=== PATIENT | female | born 1965 | race Two or more races ===

== ENCOUNTER 2024-11-26 17:48 | Inpatient (IN) | payer MEDICAID, OTHER ==
[~2024-11-26] VITALS: Ht 154.9 cm; Wt 82.0 kg
--- NOTE | 2024-11-26 18:04 | ED.PDOC ---
HPI Comments 59 y.o female presents to the ED via EMS for a chief complaint of chest pain associated with SOB and a cough that started 3 days ago. Patient reports pain is constant, substernal and non radiating, worsening on palpation and with deep inspiration. Patient reports recent discharge from [facility] on 11/12/24 with diagnose of PNA. Patient was admitted to the ICU for 2 weeks then and intubated. Patient reports upon discharge, she was not prescribed any antibiotics. Patient denies any leg swelling, nausea, vomiting, fever, or chills. Vitals: BP: 157/100 HR: 83 Temp: 98.1 F SPO2: 98% RA RR: 20 Past medical history: HTN, hyperlipidemia, kidney disease, PNA with intubation and seizures: is on Tegretol Past surgical history: Appendectomy and hysterectomy Allergies: Denies HPI: Poor Historian. REVIEW OF SYSTEMS: CONSTITUTIONAL: Denies acute: fever, diaphoresis, chills, generalized weakness. HEAD: Denies acute: headache, photophobia Eyes: Denies acute: Double vision, vision loss, eye pain, eye discharge. EARS: Denies acute: tinnitus, hearing loss, ear discharge, ear pain, THROAT: Denies acute: sore throat, swelling, difficulty swallowing , pain with swallowing, change in voice. NECK: Denies acute: neck pain, neck swelling, stiff neck. HEART: Denies acute : palpitations, LUNGS: Denies acute: wheezing, hemoptysis ABDOMEN: Denies acute: abdominal pain, Nausea, Vomiting, diarrhea, melena , hematemesis, hematochezia SKIN: Denies acute: rash, redness, lesions, itchiness. EXTREMITIES: Denies acute: calf pain, numbness, tingling, weakness, denies pain in extremity. Denies acute: Low back pain. Neuro: Denies acute: focal neurological deficit, motor or sensory focal neurological deficit, tremors, seizure like activity, confusion, dizziness, change in mental status, loss of bowel or bladder function, cauda equina like symptoms. : Denies acute: dysuria, hematuria, flank pain, increase in urinary frequency. PSYCH: Denies acute: hallucination, suicidal ideation, homicidal ideation. FEMALE: Denies acute: abnormal vaginal bleeding, foul odor, unusual discharge. PHYSICAL EXAM: General: ---[id number]-----acute distress, awake and alert. Head: normocephalic, atraumatic. Neck: supple, trachea is midline, no swelling. Throat: Normal phonation. Eyes:, no erythema, no purulent discharge, no proptosis, no icterus. Heart: regular rate, regular rhythm, no significant murmur appreciated. Lungs: no apparent respiratory distress, Able to speak in full sentences. No wheezing, no rhonchi, no crackles. No stridors Clear to auscultation bilaterally. Abdomen: non tender to palpation, non distended, soft, no guarding, no rebound, + bowel sounds. Neuro: Awake, Alert, oriented to name, self, situation, follows commands GCS=15. Speech is normal. Skin: no petechia, no purpura, no cyanosis, non-pale, not jaundice. Lower extremities: --no - Pitting edema no deformity, no focal swelling, no calf TTP. Makes eye contact. moves all four extremities. Face: no apparent facial droop. Ambulating in the ED independently. ED COURSE: Chief Complaint: Chest Pain Time Seen by MD: 17:54 Primary Care Provider: NONE Reviewed Notes: Nurses Notes, Allergies Allergies: Coded Allergies: NO KNOWN ALLERGIES (Unverified , 11/26/24) Information Source: Patient Mode of Arrival: EMS Past Medical History PAST MEDICAL HISTORY: CKF, HTN, Seizures Past Medical History (Other): PNA with intubation Surgical History: Appendectomy, Hysterectomy FIELD CROP TECHNICAL OFFICER History: No Pertinent FIELD CROP TECHNICAL OFFICER History Family History Family History: Reviewed,noncontributory to illness Social History Smoker: Non-Smoker Alcohol: Denies ETOH Use Drugs: Denies Drug Use Lives In: Home Was a procedure done? Was a procedure done?: No CP Differential Dx Differential Diagnosis: N/A Differential Diagnosis: Angina, Chest Wall Pain, Costochondritis, Pericarditis, Other (Ddx include but not limitied to gastritis, musculoskeletal pain, radiculopathy, atypical chest pain, dissection, aneurysm, ACS, unstable angina, hiatal hernia, GERD, anxiety, costochondritis, PE, pneumothroax, neoplasm, cardiac ischemia, drug abuse, anemia.) X-Ray, Labs, Meds, VS Vital Signs Date Time Temp Pulse Resp B/P (MAP) Pulse Ox O2 Delivery O2 Flow Rate FiO2 11/26/24 21:14 66 11/26/24 20:27 98.1 79 16 152/95 (114) 95 98.1 11/26/24 18:49 81 11/26/24 18:17 151/100 11/26/24 17:50 81 11/26/24 17:48 98.1 83 20 157/100 (119) 98 98.1 Lab Test 11/26/24 21:31 11/26/24 20:40 11/26/24 19:34 11/26/24 18:14 Range/Units Troponin I High Sensitivity 5 5 5 </=34 ng/L Blood Gas Specimen Type Arterial Blood Gas Sample Site Right radial Blood Gas Patient Temperature 37.0 Arterial Blood Date Drawn [id number] Arterial Blood pH 7.500 H 7.350-7.450 Arterial Blood Partial Pressure CO2 27.1 L 32.0-45.0 mmHg Arterial Blood Partial Pressure O2 90.4 83.0-108.0 mmHg Arterial Blood HCO3 20.7 L 21.0-28.0 mmol/L Arterial Blood Oxygen Saturation 97.1 94.0-98.0 % Arterial Blood Base Excess -1.3 -2.0-3.0 mmol/L Arterial Blood Oxyhemoglobin 95.2 94.0-98.0 % Arterial Blood Carboxyhemoglobin 1.5 0.5-1.5 % Arterial Blood Methemoglobin 0.5 0.0-1.5 % Joel Test Modified Blood Gas Total Hemoglobin 12.70 12.0-16.0 g/dL Blood Gas Modality Room air FiO2 % 21.0 White Blood Count 7.5 4.4-10.8 10^3/uL Red Blood Count 4.26 4.0-5.20 10^6/uL Hemoglobin 13.2 12.2-16.2 g/dL Hematocrit 38.6 36.0-46.0 % Mean Corpuscular Volume 90.6 80.0-100.0 fL Mean Corpuscular Hemoglobin 30.9 28.0-32.0 pg Mean Corpuscular Hemoglobin Concent 34.1 32.0-36.0 g/dL Red Cell Distribution Width 14.7 H 11.8-14.3 % Platelet Count 253 140-450 10^3/uL Mean Platelet Volume 9.4 6.9-10.8 fL Neutrophils (%) (Auto) 51.1 37.0-80.0 % Lymphocytes (%) (Auto) 42.2 10.0-50.0 % Monocytes (%) (Auto) 4.9 0.0-12.0 % Eosinophils (%) (Auto) 1.1 0.0-7.0 % Basophils (%) (Auto) 0.7 0.0-2.0 % Neutrophils # (Auto) 3.8 1.6-8.6 10 ^3/uL Lymphocytes # (Auto) 3.2 0.4-5.4 10 ^3/uL Monocytes # (Auto) 0.4 0-1.3 10 ^3/uL Eosinophils # (Auto) 0.1 0-0.8 10 ^3/uL Basophils # (Auto) 0 0-0.2 10 ^3/uL Nucleated Red Blood Cells 0.1 % D-Dimer, Quantitative 0.53 H 0.0-0.49 mg/L FEU Sodium Level 143 136-145 mmol/L Potassium Level 3.7 3.5-5.1 mmol/L Chloride Level 109 H 98-107 mmol/L Carbon Dioxide Level 25 20-31 mmol/L Anion Gap 9 5-15 Blood Urea Nitrogen 15 9-23 mg/dL Creatinine 0.76 0.550-1.02 mg/dL Glomerular Filtration Rate Calc 91 >90 mL/min BUN/Creatinine Ratio 19.7 10.0-20.0 Serum Glucose 100 74-106 mg/dL Lactic Acid Level 1.4 0.4-2.0 mmol/L Calcium Level 9.6 8.7-10.4 mg/dL Magnesium Level 2.1 1.6-2.6 mg/dL Total Bilirubin 0.2 0.2-1.0 mg/dL Aspartate Amino Transferase (AST) 13 13-40 U/L Alanine Aminotransferase (ALT) 21 7-40 U/L Alkaline Phosphatase 122 H 46-116 U/L B-Type Natriuretic Peptide 61.71 0-100 pg/mL Total Protein 7.1 5.7-8.2 g/dL Albumin 4.5 3.2-4.8 g/dL Current Medications Medications (Trade) Dose Ordered Sig/Beatriz Route Start Time Stop Time Status Last Admin Aspirin (Ecotrin Enteric Coated Tablet) 325 mg ONCE ONCE PO 11/26/24 18:15 11/26/24 18:16 DC 11/26/24 18:17 Nitroglycerin (Ntrostat Sublingual) 0.4 mg ONCE ONCE SL 11/26/24 18:15 11/26/24 18:16 DC 11/26/24 18:17 Ondansetron HCl (Zofran) 4 mg ONCE ONCE IV 11/26/24 20:44 11/26/24 20:45 DC 11/26/24 20:46 [place] [id number] Ph: [phone] DIAGNOSTIC IMAGING Diagnostic Imaging Report : [id number] Signed PATIENT: DANII BRADY ACCT: [id number] UNIT: [id number] : 1965 LOC: ER ROOM / BED: / AGE / SEX: 59 / F ADM STATUS: REG ER SERVICE 02 ORDERING PHYSICIAN: OZZIE DE JESUS DO PROCEDURE(s): CXRP - CHEST PORTABLE REASON: cp/cough/sob ORDER NUMBER(s): [id number], ACCESSION NUMBER(s): [id number] CHEST RADIOGRAPH Indication: cp/cough/sob Technique: Single frontal view of the chest was obtained Comparison: None FINDINGS: Lines and Tubes: None Lungs: No focal consolidation. Pleura: No effusion. No pneumothorax. Cardiomediastinal contours: Unremarkable Bones: No acute osseous abnormality. IMPRESSION: 1. No acute cardiopulmonary disease. ATED BY: ATTILA PORRAS Jr., DO DICTATED DATE/TIME: 11/26/241827 SIGNED BY: ATTILA PORRAS Jr., DO SIGNED DATE/TIME: 11/26/241827 CC: Time of 1ST Reevaluation: 17:59 Reevaluation 1ST: Unchanged Patient Education/Counseling: Diagnosis, Treatment Family Education/Counseling: No Family Present Comments Patient presented with the above HPI.---cardiac--workup was initiated. patient was found with the above mentioned diagnosis. the following medications were ordered: please refer to order lists of meds and tests obtained by myself Dr. De Jesus. Patient ED course and VS have been stabilized. Patient has been reassessed in the ED and remained in a stable condition. Pertinent incidental findings were discussed with the patient and/or family. Patient/family voices understanding and is agreeable with plan. Patient has been observed in the ED adequate length of time to insure improvement/stability. Escalation of care considered: Consideration of escalation to observation or admission Patient was ADMITTED to the medicine team for further evaluation and treatment of their presentation. All the reports of any imaging studies that were ordered by myself were reviewed by myself. Departure 1 Departure Time of Disposition: 18:35 Impression: Primary Impression: Chest pain Additional Impression: Dyspnea Disposition: ADMITTED INPATIENT Admit to: Tele Condition: Guarded Discharged With: Self Critical Care Note Critical Care Time?: No Heart Score Heart Score: Heart Score Response (Comments) Value History Moderate Suspicious 1 EKG Normal 0 Age 45-64 1 Risk Factors >3 or Hx ASHD 2 Troponin Normal limit 0 Total 4 I personally scribed for OZZIE DE JESUS DO ([email or web address]) on 11/26/24 at 18:04. Electronically submitted by Becca Bishop ([employer]). I personally scribed for OZZIE DE JESUS DO ([email or web address]) on 11/26/24 at 19:47. Electronically submitted by Becca Bishop ([email or web address]). OZZIE DE JESUS DO Nov 26, 2024 18:04
--- NOTE | 2024-11-26 18:14 | ECG ---
[facility] Test Date: 2024-11-26 Test Time: 17:50:25 Pat Name: DANII BRADY Department: ED Room: [address] [place] [address] Gender: F Assistant Manager/Embalmer: mini : 1965 Requested By: EMERGENCY EMERGENCY Order Number: [id number] Reading MD: Zafar Summers Measurements Intervals [place] Rate: 81 P: 11 [place]: 156 QRS: 35 QRSD: 96 T: 62 QT: 381 QTc: 443 Interpretive Statements Sinus rhythm Electronically Signed On 11-28-2024 22:10:11 PDT by Zafar Summers Please click the below link to view image of tracing.
[2024-11-26] MEDS: NITROGLYCERIN 0.4 MG SL TAB SL ONE (18:17)
[2024-11-26] MEDS: ASPirin-EC 325mg tab PO ONE (18:17)
--- NOTE | 2024-11-26 18:31 | DVH ---
CHEST RADIOGRAPH Indication: cp/cough/sob Technique: Single frontal view of the chest was obtained Comparison: None FINDINGS: Lines and Tubes: None Lungs: No focal consolidation. Pleura: No effusion. No pneumothorax. Cardiomediastinal contours: Unremarkable Bones: No acute osseous abnormality. IMPRESSION: 1. No acute cardiopulmonary disease.
[2024-11-26] MEDS: ONDANSETRON HCL 4 MG/2 ML VIAL IV ONE ×2 (18:45→20:46)
[2024-11-26 19:07] LABS: Basophils # (auto) 0 10 ^3/uL (0-0.2); Basophils % (auto) 0.7 % (0.0-2.0); Eosinophils # (auto) 0.1 10 ^3/uL (0-0.8); Eosinophils % (auto) 1.1 % (0.0-7.0); Hematocrit 38.6 % (36.0-46.0); Hemoglobin 13.2 g/dL (12.2-16.2); Lymphocytes # (auto) 3.2 10 ^3/uL (0.4-5.4); Lymphocytes % (auto) 42.2 % (10.0-50.0); Mean Corpuscular Hemoglobin 30.9 pg (28.0-32.0); Mean Corpuscular Hgb Conc. 34.1 g/dL (32.0-36.0); Mean Corpuscular Volume 90.6 fL (80.0-100.0); Monocytes # (auto) 0.4 10 ^3/uL (0-1.3); Monocytes % (auto) 4.9 % (0.0-12.0); Neutrophils # (auto) 3.8 10 ^3/uL (1.6-8.6); Neutrophils % (auto) 51.1 % (37.0-80.0); Nucleated Red Blood Cells % 0.1 %; Platelet Count (auto) 253 10^3/uL (140-450); Red Blood Cells 4.26 10^6/uL (4.0-5.20); Red Cell Distribution Width 14.7 % (11.8-14.3); White Blood Cell 7.5 10^3/uL (4.4-10.8)
[2024-11-26 19:09] LABS: Alanine Aminotransferase 21 U/L (7-40); Albumin 4.5 g/dL (3.2-4.8); Anion Gap 9 (5-15); Aspartate Aminotransferase 13 U/L (13-40); BUN/Creatinine Ratio 19.7 (10.0-20.0); Blood Urea Nitrogen 15 mg/dL (9-23); Calcium 9.6 mg/dL (8.7-10.4); Carbon Dioxide 25 mmol/L (20-31); Glucose 100 mg/dL (74-106); Magnesium 2.1 mg/dL (1.6-2.6); Potassium 3.7 mmol/L (3.5-5.1); Sodium 143 mmol/L (136-145); Total Protein 7.1 g/dL (5.7-8.2)
[2024-11-26 19:23] LABS: Alkaline Phosphatase 122 U/L (46-116); Bilirubin, Total 0.2 mg/dL (0.2-1.0); Chloride 109 mmol/L (98-107)
[2024-11-26 20:46] LABS: Base Excess -1.3 mmol/L (-2.0-3.0)
[2024-11-26] MEDS ORDERED: NITROGLYCERIN 0.4 MG SL TAB SL PRN (22:30)
[2024-11-26] MEDS ORDERED: MORPHINE SULFATE INJ 2 MG/ml SYRG IV PRN (22:30)
[2024-11-27] MEDS ORDERED: ACETAMINOPHEN 325 MG TAB PO PRN (01:15)
--- NOTE | 2024-11-27 01:15 | DVHHPRES ---
History of Present Illness Resident Creating Document: SAMY SALGADO RESIDENT History of Present Illness Ms. Mora, a 59-year-old female with a past medical history significant for HTN, hyperlipidemia, CKD, PNA with intubation for acute hypoxic respiratory failure ,seizures on Tegretol, Appendectomy and hysterectomy presents to the ED with chest pain, shortness of breath, and a cough that began three days ago. The chest pain is constant, substernal, non-radiating, and worsens with palpation and deep inspiration. She was recently discharged from [facility] on 11/12/24 after a two-week ICU stay for pneumonia, during which she was intubated. Upon discharge, she was not prescribed antibiotics. She denies leg swelling, nausea, vomiting, fever, or chills. Her vitals are BP 157/100, HR 83, Temp 98.1F, SpO2 98% on room air, and RR 20. Past Medical History HTN, hyperlipidemia, kidney disease, PNA with intubation and seizures: is on Te gretol Past Surgical History Appendectomy and hysterectomy Family History Noncontributory to the admission Smoke: No ALCOHOL: none Drugs: None Lives: with Family (At home) Review of Systems Constitutional: Yes: Malaise; No: Fever, Chills, Sweats, Weakness, Other Eyes: No: Pain, Vision change, Conjunctivae inflammation, Eyelid inflammation, Other, Redness ENT: No: Ear pain, Ear discharge, Nose pain, Nose discharge, Nose congestion, Mouth pain, Mouth swelling, Throat pain, Throat swelling, Other Respiratory: No: Cough, Dry, Shortness of breath, SOB with excertion, Wheezing, Hemoptysis, Pleuritic Pain, Sputum, Wheezing, Other Cardiovascular: Chest Pain, Palpitations; No: Orthopnea, Paroxysmal Noc. Dyspnea, Edema, Lt Headedness, Other Gastrointestinal: No: Nausea, Vomiting, Abdominal Pain, Diarrhea, Constipation, Melena, Hematochezia, Other Genitourinary: No Dysuria, No Frequency, No Incontinence, No Hematuria, No Retention, No Other Musculoskeletal: No: other, neck pain, shoulder pain, arm pain, back pain, hand pain, leg pain, foot pain Skin: No: Rash, Lesions, Jaundice, Bruising, Other Neurological: No: Weakness, Numbness, Incoordination, Change in speech, Confusion, Seizures, Other Allergies: Coded Allergies: NO KNOWN ALLERGIES (Unverified , 11/26/24) Medications Current Medications Medications Dose Ordered Sig/Beatriz Route Start Time Stop Time Status Last Admin Dose Admin Nitroglycerin 0.4 mg Q5MINP PRN SL 11/26/24 22:30 Morphine Sulfate 2 mg Q30M PRN IV 11/26/24 22:30 Exam Vital Signs Vital Signs Date Time Temp Pulse Resp B/P (MAP) Pulse Ox O2 Delivery O2 Flow Rate FiO2 11/26/24 21:14 66 11/26/24 20:27 98.1 16 152/95 (114) 95 98.1 General Appearance: Alert, Oriented X3, Cooperative, mild distress HEENT: Atraumatic, PERRLA, EOMI, Mucous membr. moist/pink Respiratory: Clear to auscultation, Normal air movement Cardiovascular: Regular rate, Normal S1, Normal S2, No murmurs, Gallops, Rubs, Other (Localized tenderness, reproducible) Abdominal: Normal bowel sounds, Soft, No tenderness Extremities: No clubbing, No cyanosis, No edema, Normal pulses, No ten derness/swelling Skin: No rashes, No breakdown, No significant lesion Neuro: Normal gait, Normal speech, Strength at 5/5 X4 ext, Normal tone, Sensation intact, Cranial nerves 3-12 NL, Reflexes 2+ Psych/Mental Status: Mental status NL, Mood NL Labs/Xrays Labs Test 11/26/24 23:59 11/26/24 21:31 11/26/24 20:40 11/26/24 18:14 Range/Units Troponin I High Sensitivity 5 </=34 ng/L C-Reactive Protein High Sensitivity 0.35 <1.0 mg/dL Blood Gas Specimen Type Arterial Blood Gas Sample Site Right radial Blood Gas Patient Temperature 37.0 Arterial Blood Date Drawn [id number] Arterial Blood pH 7.500 H 7.350-7.450 Arterial Blood Partial Pressure CO2 27.1 L 32.0-45.0 mmHg Arterial Blood Partial Pressure O2 90.4 83.0-108.0 mmHg Arterial Blood HCO3 20.7 L 21.0-28.0 mmol/L Arterial Blood Oxygen Saturation 97.1 94.0-98.0 % Arterial Blood Base Excess -1.3 -2.0-3.0 mmol/L Arterial Blood Oxyhemoglobin 95.2 94.0-98.0 % Arterial Blood Carboxyhemoglobin 1.5 0.5-1.5 % Arterial Blood Methemoglobin 0.5 0.0-1.5 % Joel Test Modified Blood Gas Total Hemoglobin 12.70 12.0-16.0 g/dL Blood Gas Modality Room air FiO2 % 21.0 White Blood Count 7.5 4.4-10.8 10^3/uL Red Blood Count 4.26 4.0-5.20 10^6/uL Hemoglobin 13.2 12.2-16.2 g/dL Hematocrit 38.6 36.0-46.0 % Mean Corpuscular Volume 90.6 80.0-100.0 fL Mean Corpuscular Hemoglobin 30.9 28.0-32.0 pg Mean Corpuscular Hemoglobin Concent 34.1 32.0-36.0 g/dL Red Cell Distribution Width 14.7 H 11.8-14.3 % Platelet Count 253 140-450 10^3/uL Mean Platelet Volume 9.4 6.9-10.8 fL Neutrophils (%) (Auto) 51.1 37.0-80.0 % Lymphocytes (%) (Auto) 42.2 10.0-50.0 % Monocytes (%) (Auto) 4.9 0.0-12.0 % Eosinophils (%) (Auto) 1.1 0.0-7.0 % Basophils (%) (Auto) 0.7 0.0-2.0 % Neutrophils # (Auto) 3.8 1.6-8.6 10 ^3/uL Lymphocytes # (Auto) 3.2 0.4-5.4 10 ^3/uL Monocytes # (Auto) 0.4 0-1.3 10 ^3/uL Eosinophils # (Auto) 0.1 0-0.8 10 ^3/uL Basophils # (Auto) 0 0-0.2 10 ^3/uL Nucleated Red Blood Cells 0.1 % D-Dimer, Quantitative 0.53 H 0.0-0.49 mg/L FEU Sodium Level 143 136-145 mmol/L Potassium Level 3.7 3.5-5.1 mmol/L Chloride Level 109 H 98-107 mmol/L Carbon Dioxide Level 25 20-31 mmol/L Anion Gap 9 5-15 Blood Urea Nitrogen 15 9-23 mg/dL Creatinine 0.76 0.550-1.02 mg/dL Glomerular Filtration Rate Calc 91 >90 mL/min BUN/Creatinine Ratio 19.7 10.0-20.0 Serum Glucose 100 74-106 mg/dL Lactic Acid Level 1.4 0.4-2.0 mmol/L Calcium Level 9.6 8.7-10.4 mg/dL Magnesium Level 2.1 1.6-2.6 mg/dL Total Bilirubin 0.2 0.2-1.0 mg/dL Aspartate Amino Transferase (AST) 13 13-40 U/L Alanine Aminotransferase (ALT) 21 7-40 U/L Alkaline Phosphatase 122 H 46-116 U/L B-Type Natriuretic Peptide 61.71 0-100 pg/mL Total Protein 7.1 5.7-8.2 g/dL Albumin 4.5 3.2-4.8 g/dL Assessment/Plan Assessment/Plan #Chest pain, to rule out ACS: CXR unremarkable, 12 lead EKG unremarkable, shortness of breaths negative, reproducible chest pain, BNP unremarkable, ESR and CRP unremarkable, broad differential including ACS, pleurisy, shingles, GERD,ip pericarditis, costochondritis, other musculoskeletal pain. Workup and pending labs. Keep the patient on telemetry, possible outpatient stress test. #Essential hypertension, uncontrolled: Target blood pressure 140/90 or below as per AHA/ACC guidelines of adult #Respiratory alkalosis: noted in ABG earlier in the PM, likely 2ndary to hyperventilation, underlying anxiety disorder to rule out. #hyperlipidemia: Check lipid panel, HbA1c, check ASCVD score, treatment according to the #Chronic kidney disease, likely stage I #pneumonia with intubation: Recent history of hypoxic respiratory failure and intubation in [facility] With two weeks of ICU stay status post complete antibiotics. #seizures (on Tegretol/carbamazepine): Continue seizure precaution, continue home medications. #grade 1 obesity: Weight loss counseling done. #DVT to rule out: Trace bilateral leg swelling: Mild elevation of D-dimer without other signs of PE/DVT, low in Wells criteria, bilateral ultrasound to rule out thromboembolic disorder. #DVT prophylaxis: Subcutaneous enoxaparin #GI prophylaxis: IV PPI continue #H/o sx appendectomy #H/o sx hysterectomy Code status: Full code, discussed over 39 minutes, including the medical management, chart review and planning. Patient is agreeable to the admission and medical management. Discussed with Dr. Tom. Plan discussed with: Patient, Other (RN primary team. ) My Orders Orders - SAMY SALGADO Procedure Category Date Status Time Admit ADMIT 11/26/24 Transmitted 22:19 Nitroglycerin PHA 11/26/24 In Process Sublingual (Ntrostat 22:30 Morphine Sulfate PHA 11/26/24 In Process Injection 22:30 Oxygen By Nasal RT 11/26/24 Transmitted Cannula 22:19 Stat Ekg For Chest [facility] 11/26/24 In Process Pain 22:19 Notify Md Of Changes [facility] 11/26/24 In Process From Base 22:19 Network Operations Center Technician For [facility] 11/26/24 In Process 24 Hours 22:19 Emergency Dysrhythmia [facility] 11/26/24 In Process Protocol 22:19 Rhythm Strips Once [facility] 11/26/24 In Process Every Shift 22:19 Drug Screen LAB 11/26/24 Logged 23:55 Erythrocyte LAB 11/26/24 In Process Sedimentation Rate 23:55 Echo 2d Mode Cardiac US 11/27/24 Logged DOP 00:31 Lipid Panel LAB 11/28/24 Verified 04:00 Thyroid Stimulating LAB 11/27/24 In Process Hormone 00:31 Hemoglobin A1c LAB 11/27/24 In Process 00:31 Bilat Lower Dvt US 11/27/24 Logged 00:58 Enoxaparin Sodium PHA 11/27/24 Logged (Lovenox) 10:00 Enoxaparin Sodium PHA 11/27/24 Logged (Lovenox) 01:15 Seizure Precautions PAPA 11/27/[address] 01:03 Seizure Precautions ED NURSING 11/27/24 Transmitted Pantoprazole PHA 11/27/24 Transmitted (Protonix) 01:15 Pantoprazole PHA 11/27/24 Transmitted (Protonix) 10:00 Acetaminophen Tablet PHA 11/27/24 Transmitted (Tylenol Tablet) 01:15 Date of Service: Nov 26, 2024 Billing Provider: PIPPA TOM MD Common Visit Codes: [id number] INP/OBS CARE (HIGH) SAMY SALGADO RESIDENT Nov 27, 2024 01:14 PIPPA TOM MD Nov 27, 2024 11:01
[2024-11-27 01:41] LABS: Erythrocyte Sedimentation Rate 7 mm/hr (0-20)
[2024-11-27 01:51] LABS: COVID19 ANTIGEN SOFIA FIA NEGATIVE (NEGATIVE); Rapid Influenza A Negative (Negative); Rapid Influenza B Negative (Negative)
--- NOTE | 2024-11-27 03:19 | DVH ---
Clinical History: Leg swelling mild. Comparison: None Technique: Duplex Doppler evaluation of the deep venous system of the right or left lower extremity from the com mon femoral vein to the popliteal vein including color Doppler and spectral/pulsed waveform analysis was performed. Findings: The common femoral vein demonstrates appropriate compressibility and waveform variability. There is compressibility/patency of the great saphenous vein at the proximal thigh. The femoral vein demonstrates appropriate compressibility and waveform variability. The deep femoral vein demonstrates appropriate compressibility and waveform variability. The popliteal vein demonstrates appropriate compressibility and waveform variability. There is normal compressibility at the tibioperoneal trunk. Impression: 1. No right or left deep venous thrombosis. 2. If clinical concern/symptoms persist or worsen, short-interval follow-up study is suggested.
[2024-11-27] MEDS: PANTOPRAZOLE 40 MG/10 ML VIAL INJ IV ONE (04:23)
[2024-11-27] MEDS: ENOXAPARIN SOD 40 MG/0.4 ML SYRINGE SC ONE (04:28)
[2024-11-27 04:47] VITALS: BP 150/80; PULSE 68; PULSE 80; RESP 18; TEMP 97.6; O2SAT 95
[2024-11-27 05:00] VITALS: BP 114/66; PULSE 65; RESP 16; TEMP 97.5; O2SAT 98
[2024-11-27] MEDS ORDERED: CARB200T4 PO (05:43)
[2024-11-27] MEDS ORDERED: ASPI325T6 PO (05:44)
[2024-11-27] MEDS ORDERED: ATOR10TA PO (05:44)
[2024-11-27] MEDS ORDERED: HYDR-3682 PO (05:44)
[2024-11-27] MEDS ORDERED: LISI-275 PO (05:44)
[2024-11-27] MEDS ORDERED: TRAM50TA2 PO (05:44)
[2024-11-27] MEDS: carBAMazepine 200 MG TAB PO ONE (06:30)
[2024-11-27] MEDS: hydrOXYzine 25 MG TAB or CAP PO PRN (06:30)
[2024-11-27] MEDS: LISINOPRIL 5 MG TAB PO ONE (06:31)
[2024-11-27 07:13] LABS: Basophils # (auto) 0 10 ^3/uL (0-0.2); Basophils % (auto) 0.5 % (0.0-2.0); Eosinophils # (auto) 0.1 10 ^3/uL (0-0.8); Eosinophils % (auto) 1.5 % (0.0-7.0); Hematocrit 37.4 % (36.0-46.0); Hemoglobin 12.6 g/dL (12.2-16.2); Lymphocytes # (auto) 3.5 10 ^3/uL (0.4-5.4); Lymphocytes % (auto) 46.7 % (10.0-50.0); Mean Corpuscular Hemoglobin 30.2 pg (28.0-32.0); Mean Corpuscular Hgb Conc. 33.8 g/dL (32.0-36.0); Mean Corpuscular Volume 89.5 fL (80.0-100.0); Monocytes # (auto) 0.2 10 ^3/uL (0-1.3); Neutrophils # (auto) 3.6 10 ^3/uL (1.6-8.6); Neutrophils % (auto) 48.3 % (37.0-80.0); Nucleated Red Blood Cells % 0.1 %; Platelet Count (auto) 241 10^3/uL (140-450); Red Blood Cells 4.18 10^6/uL (4.0-5.20); Red Cell Distribution Width 14.8 % (11.8-14.3); White Blood Cell 7.5 10^3/uL (4.4-10.8)
--- NOTE | 2024-11-27 07:16 | ECG ---
[facility] Test Date: 2024-11-26 Test Time: 18:49:36 Pat Name: DANII BRADY Department: ER Room: [address] [place] [address] Gender: F Proofing Machine Operator: STANLEY : 1965 Requested By: OZZIE DE JESUS Order Number: [id number] Reading MD: Zafar Summers Measurements Intervals [place] Rate: 81 P: 12 [place]: 145 QRS: 39 QRSD: 95 T: 62 QT: 405 QTc: 470 Interpretive Statements Sinus rhythm Baseline wander in lead(s) V5 Electronically Signed On 11-28-2024 22:10:36 PDT by Zafar Summers Please click the below link to view image of tracing.
[2024-11-27 07:41] LABS: Alanine Aminotransferase 16 U/L (7-40); Albumin 4.4 g/dL (3.2-4.8); Alkaline Phosphatase 112 U/L (46-116); Anion Gap 10 (5-15); BUN/Creatinine Ratio 23.2 (10.0-20.0); Bilirubin, Total 0.3 mg/dL (0.2-1.0); Blood Urea Nitrogen 16 mg/dL (9-23); Calcium 9.4 mg/dL (8.7-10.4); Carbon Dioxide 25 mmol/L (20-31); Sodium 143 mmol/L (136-145); Total Protein 7.1 g/dL (5.7-8.2)
[2024-11-27 07:46] LABS: Aspartate Aminotransferase 12 U/L (13-40); Chloride 108 mmol/L (98-107); Glucose 133 mg/dL (74-106); Potassium 3.1 mmol/L (3.5-5.1)
[2024-11-27 08:00] VITALS: PULSE 73
[2024-11-27 08:54] VITALS: BP 138/80; PULSE 74; RESP 18; TEMP 97.5; O2SAT 96
[2024-11-27] MEDS: POTASSIUM CHL 20 Meq TABLET PO ONE (10:44)
[2024-11-27] MEDS: PANTOPRAZOLE 40 MG/10 ML VIAL INJ IV SCH (10:44)
[2024-11-27] MEDS ORDERED: IBUPROFEN 600 MG TAB PO PRN (11:30)
[2024-11-27 13:00] VITALS: BP 143/92; PULSE 72; RESP 18; TEMP 98.4; O2SAT 97
--- NOTE | 2024-11-27 13:38 | DVHDSRES ---
Discharge Summary Date of Admission Resident Creating Document: KRISH FOSTER RESIDENT Nov 26, 2024 at 22:19 Date of Discharge: Nov 27, 2024 Admitting Diagnosis Chest pain Labs/Diagnostic Data: Laboratory Results Test 11/27/24 06:28 11/27/24 01:05 11/26/24 23:59 11/26/24 21:31 White Blood Count 7.5 10^3/uL (4.4-10.8) Red Blood Count 4.18 10^6/uL (4.0-5.20) Hemoglobin 12.6 g/dL (12.2-16.2) Hematocrit 37.4 % (36.0-46.0) Mean Corpuscular Volume 89.5 fL (80.0-100.0) Mean Corpuscular Hemoglobin 30.2 pg (28.0-32.0) Mean Corpuscular Hemoglobin Concent 33.8 g/dL (32.0-36.0) Red Cell Distribution Width 14.8 % (11.8-14.3) Platelet Count 241 10^3/uL (140-450) Mean Platelet Volume 9.4 fL (6.9-10.8) Neutrophils (%) (Auto) 48.3 % (37.0-80.0) Lymphocytes (%) (Auto) 46.7 % (10.0-50.0) Monocytes (%) (Auto) 3.0 % (0.0-12.0) Eosinophils (%) (Auto) 1.5 % (0.0-7.0) Basophils (%) (Auto) 0.5 % (0.0-2.0) Neutrophils # (Auto) 3.6 10 ^3/uL (1.6-8.6) Lymphocytes # (Auto) 3.5 10 ^3/uL (0.4-5.4) Monocytes # (Auto) 0.2 10 ^3/uL (0-1.3) Eosinophils # (Auto) 0.1 10 ^3/uL (0-0.8) Basophils # (Auto) 0 10 ^3/uL (0-0.2) Nucleated Red Blood Cells 0.1 % Sodium Level 143 mmol/L (136-145) Potassium Level 3.1 mmol/L (3.5-5.1) Chloride Level 108 mmol/L (98-107) Carbon Dioxide Level 25 mmol/L (20-31) Anion Gap 10 (5-15) Blood Urea Nitrogen 16 mg/dL (9-23) Creatinine 0.69 mg/dL (0.550-1.02) Glomerular Filtration Rate Calc 101 mL/min (>90) BUN/Creatinine Ratio 23.2 (10.0-20.0) Serum Glucose 133 mg/dL (74-106) Calcium Level 9.4 mg/dL (8.7-10.4) Total Bilirubin 0.3 mg/dL (0.2-1.0) Aspartate Amino Transferase (AST) 12 U/L (13-40) Alanine Aminotransferase (ALT) 16 U/L (7-40) Alkaline Phosphatase 112 U/L (46-116) Total Protein 7.1 g/dL (5.7-8.2) Albumin 4.4 g/dL (3.2-4.8) Influenza Type A Antigen Negative (Negative) Influenza Type B Antigen Negative (Negative) SARS-CoV-2 Antigen (Rapid) Negative (NEGATIVE) Erythrocyte Sedimentation Rate 7 mm/hr (0-20) Hemoglobin A1c 5.3 % A1C (<5.7) Troponin I High Sensitivity 5 ng/L (</=34) C-Reactive Protein High Sensitivity 0.35 mg/dL (<1.0) Thyroid Stimulating Hormone (TSH) 1.70 uIU/mL (0.55-4.78) Test 11/26/24 20:40 11/26/24 18:14 Blood Gas Specimen Type Arterial Blood Gas Sample Site Right radial Blood Gas Patient Temperature 37.0 Arterial Blood Date Drawn [id number] Arterial Blood pH 7.500 (7.350-7.450) Arterial Blood Partial Pressure CO2 27.1 mmHg (32.0-45.0) Arterial Blood Partial Pressure O2 90.4 mmHg (83.0-108.0) Arterial Blood HCO3 20.7 mmol/L (21.0-28.0) Arterial Blood Oxygen Saturation 97.1 % (94.0-98.0) Arterial Blood Base Excess -1.3 mmol/L (-2.0-3.0) Arterial Blood Oxyhemoglobin 95.2 % (94.0-98.0) Arterial Blood Carboxyhemoglobin 1.5 % (0.5-1.5) Arterial Blood Methemoglobin 0.5 % (0.0-1.5) Joel Test Modified Blood Gas Total Hemoglobin 12.70 g/dL (12.0-16.0) Blood Gas Modality Room air FiO2 % 21.0 D-Dimer, Quantitative 0.53 mg/L FEU (0.0-0.49) Lactic Acid Level 1.4 mmol/L (0.4-2.0) Magnesium Level 2.1 mg/dL (1.6-2.6) B-Type Natriuretic Peptide 61.71 pg/mL (0-100) Other Laboratory Tests 11/27/24 06:28 Brief Hx & Hospital Course: Ms. Mora, a 59-year-old female with a past medical history significant for HTN, hyperlipidemia, CKD, PNA with intubation for acute hypoxic respiratory failure ,seizures on Tegretol, Appendectomy and hysterectomy presents to the ED with chest pain, shortness of breath, and a cough that began three days ago. The chest pain is constant, substernal, non-radiating, and worsens with palpation and deep inspiration. She was recently discharged from [facility] on 11/12/24 after a two-week ICU stay for pneumonia, during which she was intubated. Upon discharge, she was not prescribed antibiotics. She denies leg swelling, nausea, vomiting, fever, or chills. Her vitals are BP 157/100, HR 83, Temp 98.1F, SpO2 98% on room air, and RR 20. EKG showed sinus rhythm without ST changes, troponins were negative. patient condition was improved, currently symptom-free, due to given recent admission patient likely have pericarditis or costochondritis. Patient was in a condition to be discharged home and follow up on outpatient with Cardiology for ischemic workup. Patient was advised about healthy lifestyle modifications including diet and exercise. General Appearance: Alert, Oriented X3, Cooperative, no distress HEENT: Atraumatic, PERRLA, EOMI, Mucous membr. moist/pink Respiratory: Clear to auscultation, Normal air movement Cardiovascular: Regular rate, Normal S1, Normal S2, No murmurs, Gallops, Rubs, Other (Localized tenderness, reproducible) Abdominal: Normal bowel sounds, Soft, No tenderness Extremities: No clubbing, No cyanosis, No edema, Normal pulses, No tenderness/swelling Skin: No rashes, No breakdown, No significant lesion Neuro: Normal gait, Normal speech, Strength at 5/5 X4 ext, Normal tone, Sensation intact, Cranial nerves 3-12 NL, Reflexes 2+ Psych/Mental Status: Mental status NL, Mood NL BEDSIDE CARDIA AND PULMONARY ULTRASOUND DONE PRIOR TO DISCHARGE: [id number] Operations or Procedures Duplex Doppler Impression: 1. No right or left deep venous thrombosis. CHEST RADIOGRAPH IMPRESSION: 1. No acute cardiopulmonary disease. Condition at Discharge: Stable Final Diagnosis/Problems List # Chest pain, ruled out ACS # ? Pericarditis/ costochondritis, # pleurisy, # Ruled out shingles, GERD # Essential hypertension, uncontrolled # Respiratory alkalosis # hyperlipidemia # Chronic kidney disease, likely stage I # Recent pneumonia with intubation # H/o seizures (on Tegretol/carbamazepine # Grade 1 obesity # DVT to rule out # H/o sx appendectomy # H/o sx hysterectomy Discharge Disposition: Home Discharge Instruct/Medications Diet: Consistent carbohydrate, Cardiac 2g Na,low cholest Activity: No Restrictions, As Tolerated Follow Up/Referral: PCP Ischemic workup on outpatient with Cardiology Medications: Resume home meds Ibuprofen over the counter 3 times per day as needed for pain Discharge Statement: "Patient was advised to return to the ER or call 911 if any headaches, dizziness, shortness of breath, chest pain, abdominal pain, bleeding, fevers, or worsening of medical condition. Patient was counseled about treatment plan, medications, possible side effects, patientverbalized understanding. All questions were answered to the best of my ability. This discharge took greater then 30 minutes in planning, reviewing documentation, counseling the patient, and discussing with other team members." ASSESSMENT ASSESSMENT Assessment Chest pain ruled out ACS Chest pain likely due to pericarditis / costochondritis / pleuracy KRISH FOSTER RESIDENT Nov 27, 2024 13:38
[2024-11-27] MEDS ORDERED: AUG875T PO (14:04)
[2024-11-27] MEDS ORDERED: PRED20TA2 PO (14:04)
[2024-11-27] MEDS ORDERED: BUSP5TAB51 PO (14:22)
[2024-11-27] MEDS ORDERED: POTA-36 PO (14:22)
[2024-11-27] MEDS ORDERED: FURO20TA3 PO (14:22)
[2024-11-27] MEDS ORDERED: ATOR20TA PO (14:22)
[2024-11-27] MEDS ORDERED: LISI20TA56 PO (14:22)
[2024-11-27] MEDS ORDERED: CARB200T5 PO (14:22)
[2024-11-27] MEDS ORDERED: ASPI-543 PO (14:22)
[2024-11-27] MEDS: carBAMazepine 200 MG TAB PO SCH (14:57)
[2024-11-27] MEDS: busPIRone HCL 10 MG TAB PO SCH (14:57)
[2024-11-27] MEDS: methylPREDNISolone SOD SUCC 40 MG/ML VL IV ONE (14:59)
[2024-11-27] MEDS: AZITHROMYCIN 500MG/ 250ML 250 ML IV ONE (14:59)
[2024-11-27] MEDS: IPRATROPIUM BROM 0.5 MG/2.5ML INH SOL NEB ONE (15:02)
[2024-11-27 16:37] VITALS: BP 150/80; PULSE 72; RESP 18; TEMP 97.5; O2SAT 97
[2024-11-27] MEDS ORDERED: ENOXAPARIN SOD 40 MG/0.4 ML SYRINGE SC SCH (22:00)
[2024-11-27] MEDS ORDERED: carBAMazepine 200 MG TAB PO SCH ×2 (22:00)
[2024-11-28] MEDS ORDERED: LISINOPRIL 5 MG TAB PO SCH (10:00)
[2024-11-28] MEDS ORDERED: carBAMazepine 200 MG TAB PO SCH (10:00)
[2024-11-28] MEDS ORDERED: AZITHROMYCIN 500MG/ 250ML 250 ML IV SCH (10:00)
== END 2024-11-27 16:45 | disposition home or self-care (01) | DRG 207 ==
LOC: ER 17:48 → EDBD 17:48 → OVERFLOW 22:19
PROVIDERS: ADMIT Student in an Organized Health Care Education/Training Program; ATTEND Emergency Medicine
DX: I31.9 Disease of pericardium, unspecified (principal); E87.3 Alkalosis; R56.9 Unspecified convulsions; M94.0 Chondrocostal junction syndrome [Tietze]; E66.9 Obesity, unspecified; E78.5 Hyperlipidemia, unspecified; N18.1 Chronic kidney disease, stage 1; Z20.822 Contact with and (suspected) exposure to COVID-19; I12.9 Hypertensive chronic kidney disease with stage 1 through stage 4 chronic kidney disease, or unspecified chronic kidney disease; Z68.34 Body mass index [BMI] 34.0-34.9, adult; Z90.49 Acquired absence of other specified parts of digestive tract; Z90.710 Acquired absence of both cervix and uterus; R09.1 Pleurisy
CPT/HCPCS: 36415; 36600; 71045; 80053; 82805; 83036; 83605; 83735; 83880; 84443; 84484; 85025; 85379; 85652; 86141; 87040; 87081; 87426; 87804; 93005; 93306; 93970; 94640; 96374; G0378; J2405; J2470